=== PATIENT | male | born 2000 | race Caucasian/White ===

== ENCOUNTER 2024-05-18 13:38 | Emergency (ER) | payer MEDICAID, SELFPAY ==
[2024-05-18 13:42] VITALS: BP 115/63
--- NOTE | 2024-05-18 14:34 | ED.GENMED ---
History of Present Illness
General
Chief Complaint: Abdominal Symptoms
Source: patient
Exam Limitations: none
Time Seen by Provider: 05/18/24 14:33
Nursing documentation reviewed up to this point in time: agreed with
History of Present Illness
History of Present Illness:
The patient is a pleasant 23-year-old man who reports nausea, vomiting and diarrhea since last night. Patient reports he saw small amount of blood in the stool. He is not on any blood thinners. He reports mild lower abdominal cramping, equal on
the left to the right side. He denies cough and shortness of breath. He denies sick contacts and rash. Patient reports he has no energy and thinks he is dehydrated.
Past History
Past History
ED Past Medical History: Other (Multiple sclerosis)
ED Past Surgical History: Other
Social History
Tobacco: Non-smoker
Alcohol: Other
Drug: None
Personal: Single
Living: alone
Employment: Other
Family History
Family History: Other
Review of Systems
Review of Systems
Allergies reviewed?: Yes
All Other Systems: ROS reviewed and negative except as documented in HPI and ROS
Constitutional: Reports fever, fatigue and chills
EENT: Reports no symptoms
Respiratory: Reports no symptoms
Cardiac: Reports no symptoms
ABD/GI: Reports abdominal pain, nausea, vomiting, diarrhea and anorexia
: Reports no symptoms
Musculoskeletal: Reports no symptoms
Skin: Reports no symptoms
Neurological: Reports no symptoms
Endocrine: Reports no symptoms
Hematologic/Lymphatic: Reports no symptoms
Psychiatric: Reports no symptoms
Phy Exam
Physical Exam
Physical Exam:
Physical Exam
General: Patient appears flushed but nontoxic, conversational
Neck: supple. no meningeal signs. normal psoterior pharynx
Heart: Tachycardic
Lungs: no acute respiratory distress. clear bilaterally
Abdomen: normal bowel sounds. No CVA tenderness. Mild lower abdominal tenderness bilaterally. No testicular tenderness. No particular right lower quadrant tenderness, abdomen is soft throughout and nondistended
Neuro: alert and oriented. no focal neurological deficits
Skin: no rash
Psychiatric: well kept. interactive and cooperative
Extremities: no edema. no calf tenderness. negative homans. good distal pulses
Course
Orders/Labs/Results
Orders:
Orders
05/18/24 14:33
0.9% Sodium Chloride 1000 ml [Nss] 1,000 ml IV BOLUS
Ondansetron Injectable [Zofran] 4 mg IV NOW STA
05/18/24 14:34
Acetaminophen [Tylenol] 1,000 mg PO NOW STA
05/18/24 15:56
Complete Blood Count/With Diff Urgent
Comprehensive Metabolic Panel Urgent
Lipase Urgent
Influenza A+B Rapid Molecular Urgent
MANPREET Source: Nasal Swab
Specimen Description:
05/18/24 17:37
COVID-19 Antigen Urgent
Source: Nasal Swab
Abnormal Lab Results
05/18/24
15:56
MCHC 32.9 L g/dL
(33.0-37.0)
Absolute Lymphs (auto) 0.4 L 10^3/uL
(1.2-3.4)
Absolute Monos (auto) 0.9 H 10^3/uL
(0.1-0.6)
Neutrophils % 80.1 H %
(42.2-75.2)
Lymphocytes % 6.0 L %
(20.5-51.1)
Monocytes % 13.0 H %
(1.7-9.3)
BUN 21 H mg/dl
(9-20)
Glucose 100 H mg/dl
(70-99)
05/18/24 15:56
05/18/24 15:56
Vital Signs
Initial and Last Documented VS:
Initial Vital Signs
Temp Pulse Resp BP Pulse Ox
99.9 F 122 18 115/63 99
05/18/24 13:42 05/18/24 13:42 05/18/24 13:42 05/18/24 13:42 05/18/24 13:42
Last Documented Vital Signs
Temp Pulse Resp BP Pulse Ox
100.5 F H 99 16 115/68 100
05/18/24 17:12 05/18/24 17:12 05/18/24 17:12 05/18/24 17:12 05/18/24 17:12
MDM/Problems Addressed
Differential Diagnosis Includes:
Acute gastroenteritis, influenza, acute diverticulitis
MDM/Problems Addressed:
Patient presents with acute nausea, vomiting, diarrhea and abdominal pain
Chronic conditions affecting care:
Multiple sclerosis
Acute Exacerbation and/or Progression of Chronic Illness:
Patient's illness may exacerbate his MS symptoms
*Pulse Oximetry
Patient hypoxic: no
Update Note
Update Note:
5:30 PM patient reports that he feels better. Abdominal pain is gone. Nausea is gone. Patient is asking for water and crackers which we will give him.
ED Attending Note
-
Portions of this chart may have been created with voice recognition software.� Occasional wrong word or��sound alike� substitutions may have occurred due to the inherent limitations of voice recognition software.
Discharge Plan
Departure
Discharge Problem:
Acute vomiting, Acute diarrhea
Instructions: Diarrhea in teens and adults, Clear Liquid Diet, Nausea and Vomiting, Adult (DC)
Prescriptions:
New
ondansetron 4 mg tablet,disintegrating
4 mg PO Q8H PRN (Reason: nausea and vomiting) Qty: 14 0RF
Referrals:
UNKNOWN - PT DOES,NOT KNOW [Family Provider] -
Activity Restrictions/Additional Instructions:
Take Zofran every 6-8 hours as needed for nausea.
Take 1000 mg Tylenol every 4-6 hours for fever
Interventions
Interventions:
*Risk Screen - Suicide Last Done: 05/18/24 16:06
*General Assessment Last Done: 05/18/24 16:06
*Neglect/Abuse Screening Last Done: 05/18/24 16:06
ED- Fall Risk Assessment Last Done: 05/18/24 16:06
*ED COVID-19 Vaccine History Last Done: 05/18/24 16:06
Discharge Date and Time
Print Language: [place]
[2024-05-18] MEDS: NSS 1000 IV (15:59)
[2024-05-18] MEDS: TYLENOL 1000 MG PO (16:00)
[2024-05-18] MEDS: ZOFRAN 4 MG IV (16:00)
[2024-05-18 16:24] LABS: % Basophils 0.4 % (0-2); % Eosinophils 0.1 % (0-6); % Immature Granulocytes 0.4 % (0-0.5); % Neutrophils 80.1 % (42.2-75.2); Absolute Lymphocytes 0.4 10^3/uL (1.2-3.4); Absolute Monocytes 0.9 10^3/uL (0.1-0.6); Absolute Neutrophils 5.4 10^3/uL (1.4-6.5); Hematocrit 48.4 % (39.0-52.0); Hemoglobin 15.9 g/dL (13.0-18.0); Mean Corp Hgb Conc. 32.9 g/dL (33.0-37.0); Mean Corpuscular Hgb 27.7 pg (27.0-31.0); Mean Corpuscular Volume 84.2 fL (80.0-94.0); Mean Platelet Volume 9.3 fL (7.4-10.4); Nucleated Red Blood Cells % 0 % (-); Platelet Count 188 10^3/uL (130-400); Red Blood Cell Count 5.75 10^6/uL (4.70-6.10); Red Cell Dist. Width 13.8 % (11.5-14.5); White Blood Cell Count 6.7 10^3/uL (4.8-10.8)
[2024-05-18 16:44] LABS: ALT (SGPT) 23 U/L (0-50); AST (SGOT) 22 U/L (17-59); Albumin 3.9 g/dl (3.5-5.0); Alkaline Phosphatase 51 U/L (38-126); Blood Urea Nitrogen 21 mg/dl (9-20); Carbon Dioxide 27 mmol/L (22-30); Chloride 104 mmol/L (98-107); Glucose 100 mg/dl (70-99); Lipase 72 U/L (23-300); Potassium 4.6 mmol/L (3.5-5.1); Sodium 139 mmol/L (135-145); Total Bilirubin 1.1 mg/dl (0.2-1.3); Total Protein 6.6 g/dl (6.3-8.2); eGFR > 60.00
[2024-05-18 17:12] VITALS: BP 115/68
[2024-05-18 18:12] LABS: COVID-19 Antigen Negative (Negative)
[2024-05-18 18:30] VITALS: BP 118/72
== END 2024-05-18 18:32 | disposition home or self-care (01) ==
LOC: EMR 13:38
PROVIDERS: EMERGENCY PHYSICIAN Emergency Medicine
DX: R11.2 Nausea with vomiting, unspecified (principal); R19.7 Diarrhea, unspecified; G35 Multiple sclerosis
CPT/HCPCS: 96374; 99284; 80053; 83690; 85025; 87502; 87811